=== PATIENT | female | born 1970 | race American Indian/Alaskan Native ===

== ENCOUNTER 2017-07-25 23:46 | Emergency (ER) | payer OTHER ==
--- NOTE | 2017-07-26 01:10 | XRay Report ---
FINAL REPORT PROCEDURE: AP and lateral left ankle TECHNIQUE: Left ankle radiographs, AP and lateral views. CPT 50453 HISTORY: ankle pain left COMPARISON: No prior studies are available for comparison. FINDINGS: Fracture (s) and/or Dislocation(s): None . Alignment: Normal . Joint space(s): Normal . Soft tissues: Normal . Bone mineralization: Normal . Foreign bodies: None . Calcaneal spurring: None . IMPRESSION: Negative examination.
--- NOTE | 2017-07-26 02:25 | XRay Report ---
FINAL REPORT EXAM: XR LT TIB/FIB CLINICAL INDICATIONS: lower left tib/fib pain FINDINGS: AP view of the left tibia and fibula was acquired. No fracture is seen in the left tibia or fibula on this single view. IMPRESSION: NO FRACTURE IS SEEN IN THE LEFT TIBIA OR FIBULA
--- NOTE | 2017-07-26 03:56 | Emergency Department Report ---
ED Lower Extremity HPI - General Chief Complaint: Extremity Injury, Lower Stated Complaint: LT FOOT INJURY Time Seen by Provider: 07/26/17 02:35 Source: patient Mode of arrival: Wheelchair Limitations: No Limitations - History of Present Illness Initial Comments: Patient reports that she fell at work at 4:00 this evening when. She said she is having left lower leg and ankle pain. She says she drove herself here but she is limping and she is having pain 10 out of wolf to her left outer ankle. She reports swelling to her left lower ankle. Pain is achy. No over-the- counter pain medication taken. Pain is worse with weightbearing and better with resting. Complaint: leg injury, ankle injury Onset/Timin (yesterday at 4:30 PM) -: hour(s) Time: 16:00 Injury: Leg: Left, Ankle: Left Type of Injury: other (she reports that she fell and twisted her ankle) Place: work Severity: severe Severity scale (0 -10): 10 Improves With: nothing Worsens With: weight bearing, movement Context: fall Associated Symptoms: swelling, able to partially bear weight. denies: snap/pop sensation, numbness, tingling, unable to bear weight Treatments Prior to Arrival: other (none) - Related Data Previous Rx's Medication Instructions Recorded Last Taken Type Diazepam Tab [Valium] 5 mg PO Q8H PRN #21 tab 03/02/14 Unknown Rx HYDROcodone/APAP 10-325 [[place] 1 each PO Q6HR PRN #20 tablet 03/02/14 Unknown Rx 10-325 mg TAB] Naproxen [Naprosyn] 500 mg PO Q12H #30 tablet 03/02/14 Unknown Rx Ibuprofen [Motrin] 600 mg PO Q8H PRN 4 Days #12 tablet 07/26/17 Unknown Rx Allergies Allergy/AdvReac Type Severity Reaction Status Date / Time No Known Allergies Allergy Verified 03/02/14 01:19 ED Review of Systems ROS: Stated complaint: LT FOOT INJURY Other details as noted in HPI Comment: All other systems reviewed and negative Constitutional: no symptoms reported Respiratory: no symptoms reported Cardiovascular: denies: chest pain, palpitations, dyspnea on exertion, edema, syncope, paroxysmal nocturnal dyspnea Gastrointestinal: denies: nausea, vomiting Musculoskeletal: joint swelling, arthralgia. denies: back pain, myalgia Skin: denies: rash Neurological: abnormal gait. denies: headache, weakness, numbness, paresthesias , confusion ED Past Medical Hx - Past Medical History Previous Medical History?: No - Surgical History Past Surgical History?: Yes Additional Surgical History: tubal - Family History Family history: no significant - Social History Smoking Status: Never Smoker Substance Use Type: None - Medications Home Medications: Home Medications Medication Instructions Recorded Confirmed Last Taken Type Diazepam Tab [Valium] 5 mg PO Q8H PRN #21 tab 03/02/14 Unknown Rx HYDROcodone/APAP 10-325 [[place] 1 each PO Q6HR PRN #20 tablet 03/02/14 Unknown Rx 10-325 mg TAB] Naproxen [Naprosyn] 500 mg PO Q12H #30 tablet 03/02/14 Unknown Rx Ibuprofen [Motrin] 600 mg PO Q8H PRN 4 Days #12 tablet 07/26/17 Unknown Rx ED Physical Exam - General Limitations: No Limitations (none) General appearance: alert, in no apparent distress - Head Head exam: Present: atraumatic, normocephalic, normal inspection - Eye Eye exam: Present: normal appearance, PERRL, EOMI. Absent: periorbital swelling , periorbital tenderness Pupils: Present: normal accommodation - Neck Neck exam: Present: normal inspection, full ROM, other (No C-spine tenderness). Absent: tenderness, meningismus, lymphadenopathy - Respiratory Respiratory exam: Present: normal lung sounds bilaterally. Absent: respiratory distress, chest wall tenderness - Cardiovascular Cardiovascular Exam: Present: regular rate, normal rhythm, normal heart sounds. Absent: systolic murmur, diastolic murmur - Extremities Exam Extremities exam: Present: normal inspection, full ROM, normal capillary refill , other (no clubbing, cyanosis or edema. +2 pulses all extremities. No neurovascular compromise.). Absent: tenderness, pedal edema, joint swelling, calf tenderness - Expanded Lower Extremity Exam Left Hip exam: Present: normal inspection, full ROM, pelvic stability. Absent: tenderness, swelling, abrasion, laceration, ecchymosis, deformity, crepidus, dislocation, erythema, external rotation, internal rotation, shortening Upper Leg exam: Present: normal inspection, full ROM. Absent: tenderness, swelling, abrasion, laceration, ecchymosis, deformity, crepidus, dislocation, erythema Knee exam: Present: normal inspection, full ROM, full knee extension. Absent: tenderness, swelling, abrasion, laceration, ecchymosis, deformity, crepidus, dislocation, erythema, effusion, pain w/ pronation/supination, posterior draw sign, pain/laxity with valgus, pain/laxity with varus Lower Leg exam: Present: normal inspection, full ROM. Absent: tenderness, swelling, abrasion, laceration, ecchymosis, deformity, crepidus, dislocation, erythema, palpable cord, Maulik's sign Ankle exam: Present: normal inspection, full ROM, tenderness (left outer ankle) . Absent: swelling, abrasion, laceration, ecchymosis, deformity, crepidus, dislocation, erythema Foot/Toe exam: Present: normal inspection, full ROM. Absent: tenderness, swelling, abrasion, laceration, ecchymosis, deformity, crepidus, dislocation, erythema, amputation, puncture wound, foreign body, calcaneal tenderness, tenderness at base of 5th metatarsal, nail avulsion, subungual hematoma Neuro vascular tendon exam: Present: no vascular compromise. Absent: pulse deficit, abnormal cap refill, motor deficit, sensory deficit, tendon deficit, extremity cold to touch, pallor, abnormal 2-point discrimination, decreased fine /light touch, foot drop, peroneal nerve deficit, significant pain with passive ROM of distal joint Gait: Positive: observed and normal - Back Exam Back exam: Present: normal inspection, full ROM, other (ambulates without any difficulties). Absent: tenderness, CVA tenderness (R), CVA tenderness (L), muscle spasm, paraspinal tenderness, vertebral tenderness, rash noted - Neurological Exam Neurological exam: Present: alert, oriented X3, normal gait - Psychiatric Psychiatric exam: Present: normal affect, normal mood - Skin Skin exam: Present: warm, dry, intact, normal color. Absent: rash ED Course Vital Signs 07/25/17 07/26/17 23:51 04:23 Temperature 97.2 F L Pulse Rate 100 H 82 Respiratory 18 18 Rate Blood Pressure 141/83 Blood Pressure 138/82 [Left] O2 Sat by Pulse 100 100 Oximetry - Reevaluation(s) Reevaluation #1: 07/26/17 04:00 Patient is stable throughout ED course. She was asleep without any distress prior to examination. ED Lower Extremity MDM - Radiology Data Radiology results: report reviewed X-ray of left ankle reveal no acute fracture or dislocation. No soft tissue swelling - Medical Decision Making ED course: Patient reports accidental fall and injury to left leg and ankle with pain and swelling that happened at work in the evening. Patient states that she went home and she started having pain and she drove herself to the emergency room to be checked. Findings for normal exam of extremities without any effusion, contusion, erythema, abrasion or laceration. Patient with normal neurovascular check. X-ray of ankle reveal no acute findings. This was discussed patient and I told her that she has musculoskeletal pain and she will need to rest, ice, elevate area and take Motrin as prescribed. She was understanding discharge instruction and treatment plan and discharged home in stable condition. Ambulated without any difficulties from emergency room with prescription for Motrin and to follow up with her primary care Critical care attestation.: If time is entered above; I have spent that time in minutes in the direct care of this critically ill patient, excluding procedure time. ED Disposition Clinical Impression: Arthralgia of multiple sites Accidental fall Qualifiers: Encounter type: initial encounter Qualified Code(s): W19.XXXA - Unspecified fall, initial encounter Disposition: DC- TO HOME OR SELFCARE Is pt being admited?: No Does the pt Need Aspirin: No Condition: Stable Instructions: Musculoskeletal Pain (ED), Fall Prevention (ED) Additional Instructions: Please follow-up with your primary care physician and if you do not have one follow-up with outside Medical Center and other community referrals given. Rest, ice and elevate affected area for 2 days Take Motrin as prescribed for pain Prescriptions: Ibuprofen [Motrin] 600 mg PO Q8H PRN 4 Days #12 tablet PRN Reason: Pain Referrals: [facility] [Outside] - 3-5 Days [facility] [Outside] - 3-5 Days Forms: Work/School Release Form(ED)
[2017-07-26 04:24] VITALS: BP 138/82
== END 2017-07-26 04:24 | disposition home or self-care (01) ==
LOC: ED 23:46
DX: M25.572 Pain in left ankle and joints of left foot (principal); M79.89 Other specified soft tissue disorders
CPT/HCPCS: 99283